=== PATIENT | female | born 1990 | race Asian ===

== ENCOUNTER 2017-11-19 20:13 | Emergency (ER) | payer OTHER ==
[~2017-11-19] VITALS: Ht 154.9 cm; Wt 64.4 kg
[2017-11-19 22:16] VITALS: BP 112/65; TEMP 98.1
== END 2017-11-19 22:16 | disposition short-term general hospital (02) ==
LOC: ED 20:13
DX: O60.03 Preterm labor without delivery, third trimester (principal)
CPT/HCPCS: 96360; 99285